=== PATIENT | male | born 1980 | race Caucasian/White ===

== ENCOUNTER → 2021-05-09 | Outpatient (CLI) | payer BC ==
--- NOTE | 2021-05-10 08:51 | KCIC ---
Two-view right tibia-fibula HISTORY: Pain medial proximal tibia radiating to ankle for approximately 6 weeks AP lateral views There is a lytic destructive lesion within the medial proximal right tibia. This is not well-circumsc ribed has thick transition zone. 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 Recommend consultation with oncologic regulatory specialist such as Dr. Montalvo at . Electronically signed by: Kenn Turner III, MD (05/10/2021 8:48 AM) [facility]
== END ==
LOC: KCIC 14:15
PROVIDERS: ATTEND Nurse Practitioner Family
DX: M79.604 Pain in right leg (principal); M25.80 Other specified joint disorders, unspecified joint
CPT/HCPCS: 73590